=== PATIENT | female | born 1955 | race Caucasian/White ===

== ENCOUNTER → 2020-11-01 | Outpatient (CLI) | payer MEDICARE, OTHER ==
[~2020-11-01] MED LIST: ADULT LOW DOSE81 MG PO; BENAZEPRIL HCL20 MG PO; CLARITIN10 MG PO; FIBERCON625 MG PO; FISH OIL 1,0001 EACH PO; MOBIC7.5 MG PO; NEURONTIN 400400 MG PO; NORCO 7.5-3251 EACH PO; NORVASC10 MG PO; PEPCID20 MG PO; PRAVACHOL20 MG PO; SAVELLA12.5 MG PO; SYNTHROID200 MCG PO; TENORMIN 25 MG25 MG PO; VITAMIN D32000 UNI1 PO
== END ==
LOC: ECHO 10-24 10:00 → HEART 5 10-24 11:00 → NM 08:55 → ECHO 11:00
DX: R07.9 Chest pain, unspecified (principal); R00.2 Palpitations; I08.3 Combined rheumatic disorders of mitral, aortic and tricuspid valves
CPT/HCPCS: ECHO; 78452; 93306; A9502; J2785